=== PATIENT | male | born 1980 | race Caucasian/White ===

== ENCOUNTER 2016-08-15 14:21 | Inpatient (IN) | payer MEDICARE, BC, MEDICAID ==
[~2016-08-15] VITALS: Ht 172.7 cm; Wt 87.2 kg
[2016-08-15] MEDS ORDERED: LORazepam 2 MG/ML VIAL IM ONE (15:30)
[2016-08-15] MEDS ORDERED: DiphenhydrAMINE HCL 50 MG/ML VIAL IM ONE (15:30)
[2016-08-15] MEDS ORDERED: HALOPERIDOL LACTATE 5 MG/ML VIAL IM ONE (15:30)
[2016-08-15 15:45] LABS: EOSINOPHILS % (AUTO) 0 % (1.0-6.0); HEMATOCRIT 45.5 % (41-53); LYMPHOCYTES % (AUTO) 8.4 % (22.0-44.0); MEAN CORPUSCULAR HGB CONC 32.9 G/dL (31.0-37.0); MEAN CORPUSCULAR VOLUME 88 fL (80-100); MONOCYTES # (AUTO) 0.5 K/uL (0.1-1.0); MONOCYTES % (AUTO) 4.1 % (2.0-9.0); NEUTROPHILS # (AUTO) 10.4 K/uL (1.8-7.7); PLATELET COUNT (AUTO) 237 K/uL (150-450); RED BLOOD CELL COUNT(AUTO) 5.16 MIL/uL (4.50-5.90); RED CELL DISTRIBUTION WIDTH 12.9 % (11.5-14.5); WHITE BLOOD COUNT (AUTO) 11.8 K/uL (4.5-11.0)
[2016-08-15 15:48] LABS: ANION GAP 12 mmol/L (8-16); CALCIUM, TOTAL 8.7 mg/dL (8.8-10.5); CARBON DIOXIDE 24 mmol/L (22-29); CHLORIDE 103 mmol/L (98-107); CREATININE 1.03 mg/dL (0.60-1.30); GLOMERULAR FILTR. RATE CALC > 60 mL/min (>60); POTASSIUM 3.4 mmol/L (3.5-5.1); SODIUM SERUM 139 mmol/L (136-145); UREA NITROGEN, BLOOD 11 mg/dL (7-18)
[2016-08-15 15:53] LABS: NEUTROPHILS % (AUTO) 87.5 % (40.0-70.0)
[2016-08-15 15:54] LABS: ALANINE AMINOTRANSFERASE 31 U/L (12-78); ASPARTATE AMINOTRANSFERASE 20 U/L (15-37); BILIRUBIN,TOTAL 0.6 mg/dL (0.1-1.0); TOTAL PROTEIN, SERUM 6.8 g/dL (6.4-8.2)
[2016-08-15] MEDS ORDERED: LORazepam 2 MG TABLET PO PRN (17:15)
[2016-08-16 00:19] VITALS: BP 117/79
[2016-08-16] MEDS ORDERED: INFLUENZA VIRUS VACCINE QVS 2016-17 (3YR+)/PF 60 MCG/0.5 ML SYRINGE IM ONE (03:00)
[2016-08-16 10:04] VITALS: BP 118/75
[2016-08-16] MEDS ORDERED: PETROLATUM,WHITE 71 GM JELLY TP PRN (10:45)
[2016-08-16] MEDS ORDERED: ALBUTEROL SULFATE HFA 90 MCG/PUFF 8 GM INHALER IH PRN (10:45)
[2016-08-16] MEDS ORDERED: BACITRACIN 28.4 GM OINTMENT TP PRN (10:45)
[2016-08-16] MEDS ORDERED: ACETAMINOPHEN 325 MG TABLET PO PRN (10:45)
[2016-08-16] MEDS ORDERED: IBUPROFEN 600 MG TABLET PO PRN (10:45)
[2016-08-16] MEDS ORDERED: CloNIDine HCL 0.1 MG TABLET PO PRN (10:45)
[2016-08-16] MEDS ORDERED: POTASSIUM CHLORIDE 20 MEQ ER TABLET PO ONE (10:45)
[2016-08-16] MEDS ORDERED: MAGNESIUM HYDROXIDE SUSPENSION 30 ML UDCUP PO PRN (10:45)
[2016-08-16] MEDS ORDERED: LOPERAMIDE HCL 2 MG CAPSULE PO PRN (10:45)
[2016-08-16] MEDS ORDERED: ONDANSETRON HCL 4 MG TABLET PO PRN (10:45)
[2016-08-16] MEDS ORDERED: BENZOCAINE/MENTHOL LOZENGE [8 LOZENGES/PACKET] MM PRN (11:00)
[2016-08-16] MEDS: DOCUSATE SODIUM 250 MG CAPSULE PO SCH ×2 (11:56→17:22)
[2016-08-16] MEDS: HydrOXYzine PAMOATE 50 MG CAPSULE PO PRN ×2 (15:05→21:08)
[2016-08-16 16:00] VITALS: BP 121/81
[2016-08-17] MEDS: ZOLPIDEM TARTRATE 10 MG TABLET PO PRN (01:01)
[2016-08-17] MEDS: HALOPERIDOL 5 MG TABLET PO PRN (01:01)
[2016-08-17] MEDS: MAG HYDROX/AL HYDROX/SIMETH ES 30 ML SUSPENSION UDCUP PO PRN ×2 (05:15→11:15)
[2016-08-17 07:02] LABS: HEMOGLOBIN A1C 5.3 % (4.5-6.2)
[2016-08-17 07:18] LABS: POTASSIUM 4.4 mmol/L (3.5-5.1); THYROID STIMULATING HORMONE 2.48 uIU/mL (0.36-3.74)
[2016-08-17 08:08] VITALS: BP 127/89
[2016-08-17] MEDS: HydrOXYzine PAMOATE 50 MG CAPSULE PO PRN ×2 (08:15→18:55)
[2016-08-17] MEDS: OMEPRAZOLE 20 MG CAPSULE PO SCH (08:15)
[2016-08-17] MEDS: DOCUSATE SODIUM 250 MG CAPSULE PO SCH ×2 (09:00→16:18)
[2016-08-17] MEDS ORDERED: HALOPERIDOL LACTATE 5 MG/ML VIAL IM ONE (12:45)
[2016-08-17] MEDS ORDERED: DiphenhydrAMINE HCL 50 MG/ML VIAL IM ONE (12:45)
[2016-08-17] MEDS ORDERED: LORazepam 2 MG/ML VIAL IM ONE (12:45)
[2016-08-17] MEDS ORDERED: TUBERCULIN, PURIFIED PROTEIN DERIVATIVE 5 TU/0.1 ML SYG ID ONE (13:15)
[2016-08-17 16:24] VITALS: BP 123/77
[2016-08-17] MEDS: CloZAPine 100 MG TABLET PO SCH (20:23)
[2016-08-18 08:15] VITALS: BP 121/68
[2016-08-18] MEDS: OMEPRAZOLE 20 MG CAPSULE PO SCH (08:37)
[2016-08-18] MEDS: DOCUSATE SODIUM 250 MG CAPSULE PO SCH ×2 (08:39→16:26)
[2016-08-18] MEDS: HydrOXYzine PAMOATE 50 MG CAPSULE PO PRN (17:19)
[2016-08-18 18:40] VITALS: BP 138/94
[2016-08-18] MEDS: CloZAPine 100 MG TABLET PO SCH (20:24)
[2016-08-19 09:18] VITALS: BP 116/76
[2016-08-19] MEDS: OMEPRAZOLE 20 MG CAPSULE PO SCH (10:17)
[2016-08-19] MEDS: DOCUSATE SODIUM 250 MG CAPSULE PO SCH ×2 (10:17→16:19)
[2016-08-19] MEDS: HydrOXYzine PAMOATE 50 MG CAPSULE PO PRN (10:19)
[2016-08-19 16:49] VITALS: BP 126/73
[2016-08-19] MEDS: CloZAPine 100 MG TABLET PO SCH (20:38)
[2016-08-19] MEDS: HALOPERIDOL 5 MG TABLET PO PRN (20:47)
[2016-08-19] MEDS: ZOLPIDEM TARTRATE 10 MG TABLET PO PRN (20:47)
[2016-08-20 04:30] VITALS: BP 106/88
[2016-08-20 08:44] VITALS: BP 120/64
[2016-08-20] MEDS: HydrOXYzine PAMOATE 50 MG CAPSULE PO PRN (11:24)
[2016-08-20] MEDS: DOCUSATE SODIUM 250 MG CAPSULE PO SCH ×2 (11:24→16:10)
[2016-08-20] MEDS: OMEPRAZOLE 20 MG CAPSULE PO SCH (11:25)
[2016-08-20 16:00] VITALS: BP 128/85
[2016-08-20] MEDS: HALOPERIDOL 5 MG TABLET PO PRN (17:41)
[2016-08-20] MEDS ORDERED: DiphenhydrAMINE HCL 50 MG/ML VIAL IM ONE (18:00)
[2016-08-20] MEDS: CloZAPine 100 MG TABLET PO SCH (20:29)
[2016-08-21 08:06] VITALS: BP 122/77
[2016-08-21] MEDS: DOCUSATE SODIUM 250 MG CAPSULE PO SCH ×2 (08:51→17:16)
[2016-08-21] MEDS: OMEPRAZOLE 20 MG CAPSULE PO SCH (08:52)
[2016-08-21] MEDS: HydrOXYzine PAMOATE 50 MG CAPSULE PO PRN ×2 (12:45→18:57)
[2016-08-21 16:23] VITALS: BP 130/79
[2016-08-21] MEDS: CloZAPine 100 MG TABLET PO SCH (20:09)
[2016-08-22] MEDS: ZOLPIDEM TARTRATE 10 MG TABLET PO PRN (02:23)
[2016-08-22] MEDS: MAG HYDROX/AL HYDROX/SIMETH ES 30 ML SUSPENSION UDCUP PO PRN (02:23)
[2016-08-22 08:16] VITALS: BP 134/83
[2016-08-22] MEDS: OMEPRAZOLE 20 MG CAPSULE PO SCH (08:50)
[2016-08-22] MEDS: DOCUSATE SODIUM 250 MG CAPSULE PO SCH ×2 (08:50→17:31)
[2016-08-22] MEDS: HydrOXYzine PAMOATE 50 MG CAPSULE PO PRN ×2 (08:52→19:17)
[2016-08-22] MEDS ORDERED: ARIPiprazole ER SUSPENSION 400 MG PRE-FILLED DUAL CHAMBER SYRINGE IM SCH ×2 (15:45→16:00)
[2016-08-22 17:11] VITALS: BP 134/67
[2016-08-22] MEDS: CloZAPine 100 MG TABLET PO SCH (20:09)
[2016-08-23] MEDS: OMEPRAZOLE 20 MG CAPSULE PO SCH (08:15)
[2016-08-23] MEDS: DOCUSATE SODIUM 250 MG CAPSULE PO SCH ×2 (08:15→16:38)
[2016-08-23 08:17] VITALS: BP 132/81
[2016-08-23] MEDS: HydrOXYzine PAMOATE 50 MG CAPSULE PO PRN ×2 (08:17→16:38)
[2016-08-23] MEDS ORDERED: CHOLECALCIFEROL (VIT D3) 1,000 UNITS TABLET PO SCH (09:00)
[2016-08-23] MEDS ORDERED: CLOZ100 PO (16:08)
[2016-08-23] MEDS ORDERED: ARIP400S3 IM (16:08)
[2016-08-23] MEDS ORDERED: DOCU250C91 PO (16:13)
[2016-08-23] MEDS ORDERED: OMEP20 PO (16:13)
[2016-08-23] MEDS ORDERED: VITAD1000 PO (16:14)
== END 2016-08-23 17:00 | disposition home or self-care (01) | DRG 885 ==
LOC: EMS 14:24 → EEVIPCON 14:24 → 3EC 21:02 → 3EI 08-23 10:42
DX: F20.0 Paranoid schizophrenia (principal); F12.90 Cannabis use, unspecified, uncomplicated; G47.00 Insomnia, unspecified; K59.00 Constipation, unspecified; E87.6 Hypokalemia; E11.65 Type 2 diabetes mellitus with hyperglycemia; E55.9 Vitamin D deficiency, unspecified; Z79.84 Long term (current) use of oral hypoglycemic drugs; Z79.899 Other long term (current) drug therapy; Z91.5 Personal history of self-harm; Z72.89 Other problems related to lifestyle; Z28.21 Immunization not carried out because of patient refusal; Z71.51 Drug abuse counseling and surveillance of drug abuser
CPT/HCPCS: 82306; 83036; 84132; 84443; 96372; 99285; G0480; J0401; J1200; J1630; J2060; J3535

== ENCOUNTER 2022-11-05 01:14 | Emergency (ER) | payer MEDICARE, OTHER ==
[~2022-11-05] VITALS: Ht 177.8 cm; Wt 98.0 kg
[~2022-11-05 01:14] MED LIST: BENZ0.5T49 PO; CHOL100018 PO; DOCU-350 PO; HALO10TA21 PO; OMEP20 PO
[2022-11-05 01:20] VITALS: BP 113/76
[2022-11-05] MEDS ORDERED: BENZ1TAB84 PO (01:25)
[2022-11-05] MEDS ORDERED: CLOZ100T68 PO ×2 (01:27)
[2022-11-05] MEDS ORDERED: LUMA42CA PO (01:27)
[2022-11-05] MEDS ORDERED: DIVA-85 PO (01:27)
[2022-11-05 01:44] LABS: COVID AG,FIA SOURCE NASAL SWAB
[2022-11-05 02:14] LABS: BASOPHILS % (AUTO) 0.3 % (0.0-2.0); EOSINOPHILS % (AUTO) 0.1 % (1.0-6.0); HEMATOCRIT 43.7 % (41-53); HEMOGLOBIN 15.3 g/dL (13.5-17.5); LYMPHOCYTES # (AUTO) 1.7 K/uL (1.0-4.8); LYMPHOCYTES % (AUTO) 26.8 % (22.0-44.0); MEAN CORPUSCULAR HEMOGLOBIN 30.5 pg (26.0-34.0); MEAN CORPUSCULAR HGB CONC 34.9 G/dL (31.0-37.0); MEAN CORPUSCULAR VOLUME 87 fL (80-100); MONOCYTES # (AUTO) 0.5 K/uL (0.1-1.0); MONOCYTES % (AUTO) 7.3 % (2.0-9.0); NEUTROPHILS % (AUTO) 65.5 % (40.0-70.0); PLATELET COUNT (AUTO) 186 K/uL (150-450); RED CELL DISTRIBUTION WIDTH 13.5 % (11.5-14.5)
[2022-11-05 02:26] LABS: ANION GAP 1 mmol/L (8-16); CALCIUM, TOTAL 9.6 mg/dL (8.8-10.5); CARBON DIOXIDE 31 mmol/L (22-29); CHLORIDE 100 mmol/L (98-107); CREATININE 1.15 mg/dL (0.60-1.30); GLOMERULAR FILTR. RATE CALC > 60 mL/min (>60); GLUCOSE,RANDOM 109 mg/dL (70-110); POTASSIUM 3.5 mmol/L (3.5-5.1); SODIUM SERUM 132 mmol/L (136-145)
[2022-11-05 02:33] LABS: ALANINE AMINOTRANSFERASE 18 U/L (12-78); ALKALINE PHOSPHATASE 67 U/L (46-116); ASPARTATE AMINOTRANSFERASE 11 U/L (15-37); BILIRUBIN,TOTAL 0.5 mg/dL (0.1-1.0); TOTAL PROTEIN, SERUM 7.3 g/dL (6.4-8.2)
[2022-11-05 03:27] LABS: AMPHET/METH SCREEN,URINE NEGATIVE (NEGATIVE); BARBITURATE SCREEN, URINE NEGATIVE (NEGATIVE); BENZODIAZEPINES SCREEN,URINE NEGATIVE (NEGATIVE); CANNABINOID SCREEN,URINE NEGATIVE (NEGATIVE); COCAINE SCREEN,URINE NEGATIVE (NEGATIVE); METHADONE SCREEN, URINE NEGATIVE (NEGATIVE); OPIATE SCREEN,URINE NEGATIVE (NEGATIVE); PHENCYCLIDINE SCREEN,URINE NEGATIVE (NEGATIVE)
== END 2022-11-05 04:45 | disposition home or self-care (01) ==
LOC: EMS 01:18
DX: F20.9 Schizophrenia, unspecified (principal); F41.9 Anxiety disorder, unspecified; K21.9 Gastro-esophageal reflux disease without esophagitis; F17.210 Nicotine dependence, cigarettes, uncomplicated; F12.90 Cannabis use, unspecified, uncomplicated; Z20.822 Contact with and (suspected) exposure to COVID-19
CPT/HCPCS: 99283; 87426; 80053; 80164; 82140; 85025; 36415; 80307 ×2; G0480